=== PATIENT | female | born 1975 | race Two or more races ===

== ENCOUNTER 2018-01-27 11:30 | Inpatient (IN) | payer OTHER ==
[~2018-01-27] VITALS: Ht 152.4 cm; Wt 70.3 kg
[2018-01-27] MEDS ORDERED: CYTOMEL5 MCG PO (13:36)
[2018-01-27] MEDS ORDERED: SYNTHROID75 MCG PO (13:36)
[2018-01-27] MEDS ORDERED: COZAAR50 MG PO (13:36)
[2018-01-27] MEDS ORDERED: CLARITIN10 M2 PO (13:37)
== END 2018-01-30 13:37 | disposition home or self-care (01) | DRG 743 ==
LOC: O/R 01-29 05:59 → SURH 01-29 08:00 → SURG-SUITE 01-29 12:22
PROVIDERS: Obstetrics & Gynecology
PROC: 0UT70ZZ Resection of Bilateral Fallopian Tubes, Open Approach (ICD-10-PCS; 2018-01-29)
PROC: 0UT90ZZ Resection of Uterus, Open Approach (ICD-10-PCS; principal; 2018-01-29 08:00)
DX: D25.1 Intramural leiomyoma of uterus (principal); N72 Inflammatory disease of cervix uteri; N73.6 Female pelvic peritoneal adhesions (postinfective)

== ENCOUNTER 2024-11-09 12:19 | Emergency (ER) | payer OTHER ==
[~2024-11-09] VITALS: Ht 152.4 cm; Wt 71.7 kg
[~2024-11-09 12:19] MED LIST: CLARITIN10 M2 PO; COZAAR50 MG PO; CYTOMEL5 MCG PO; SYNTHROID75 MCG PO
[2024-11-09] MEDS ORDERED: 0.9 % SODIUM CHLORIDE 1,000 ML IV STA (14:09)
[2024-11-09 15:14] LABS: HEMATOCRIT 42.4 % (36.0-45.00); HEMOGLOBIN 14.1 g/dL (12.0-15.00); MEAN CELL VOLUME 87.4 fL (80.00-100.00); MEAN CORPUSCULAR HEMOGLOBIN 29.1 pg (27.00-32.0); MEAN CORPUSCULAR HGB CONC 33.2 g/dl (32.0-36.0); PLATELET COUNT 282 K/uL (150-450); RED BLOOD COUNT 4.85 M/uL (4.00-6.00); RED CELL DISTRIBUTION WIDTH 13.7 % (11.5-14.5)
[2024-11-09 15:45] LABS: PH,URINE 7.5 (5.0-8.0); URINE APPEARANCE Clear; URINE BILIRRUBIN Negative (NEGATIVE); URINE BLOOD Negative; URINE COLOR Yellow; URINE GLUCOSE Negative (NEGATIVE); URINE KETONE Trace (NEGATIVE); URINE LEUKOCYTE Negative; URINE NITRATE Negative; URINE PROTEIN Negative (NEGATIVE); URINE UROBILINOGEN 0.2 E.U./dl
[2024-11-09 15:48] LABS: URINE BACTERIA 45.2 uL (0.0-1933); URINE RBC 20.1 uL (0.0-20.8)
[2024-11-09 15:58] LABS: ERYTHROCYTE SEDIMENTATION RATE 58 mm/hr
[2024-11-09 16:11] LABS: URINE WBC 1.4 uL (0.0-23.2)
[2024-11-09 16:14] LABS: ALBUMIN 4.1 gm/dL (3.4-5.0); BILIRUBIN TOTAL 0.56 mg/dL (0.3-1.2); CREATININE SERUM 0.73 mg/dL (0.55-1.02); GFR 84.05; POTASSIUM 4.11 mEq/L (3.5-5.1); TOTAL PROTEIN 8.2 gm/dL (6.4-8.2)
[2024-11-09 16:27] LABS: BILIRUBIN,CONJUGATED 0.1 mg/dL (0.0-0.2); BILIRUBIN,UNCONJUGATED 0.46 mg/dL (0.0-0.6)
== END 2024-11-09 17:51 | disposition home or self-care (01) ==
LOC: ER 12:21
PROVIDERS: General Practice
DX: N20.0 Calculus of kidney (principal); I10 Essential (primary) hypertension; E03.9 Hypothyroidism, unspecified; Z88.2 Allergy status to sulfonamides; Z88.8 Allergy status to other drugs, medicaments and biological substances; Z91.048 Other nonmedicinal substance allergy status